=== PATIENT | male | born 1965 | race Native Hawaiian/Other Pacific Islander ===

== ENCOUNTER 2019-01-26 10:40 | Inpatient (IN) | payer OTHER ==
[2019-01-26] VITALS (9 sets, daily range): BP systolic 108–148; BP diastolic 62–77; TEMP 97.5–99.8; Ht 167.6 cm; Wt 72.4 kg
[~2019-01-26] VITALS: Ht 167.6 cm; Wt 72.4 kg
[2019-01-26] MEDS ORDERED: LEVO0.0529 PO (10:53)
[2019-01-26] MEDS ORDERED: CEPH500C20 PO (10:54)
[2019-01-26 12:07] LABS: POTASSIUM 3.2 mmol/L (3.6-5.2)
[2019-01-26 12:14] LABS: PLATELET COUNT 78 K/uL (142-355)
[2019-01-27] VITALS: BP 118/72; TEMP 98
[2019-01-27 04:00] VITALS: BP 136/71; TEMP 98.8
[2019-01-27 05:21] LABS: PLATELET COUNT 83 K/uL (142-355)
[2019-01-27 05:46] LABS: POTASSIUM 3.4 mmol/L (3.6-5.2)
[2019-01-27 20:00] VITALS: BP 143/58; TEMP 99.3
[2019-01-28] VITALS: BP 128/70; TEMP 100.2
[2019-01-28 04:00] VITALS: BP 133/70; TEMP 99.2
[2019-01-28 05:13] LABS: PLATELET COUNT 102 K/uL (142-355)
[2019-01-28 05:29] LABS: POTASSIUM 3.6 mmol/L (3.6-5.2)
[2019-01-28 08:00] VITALS: BP 124/70; TEMP 98.7
[2019-01-28 16:00] VITALS: BP 127/73; TEMP 99.9
[2019-01-28 20:00] VITALS: BP 136/74; TEMP 98.4
[2019-01-29] VITALS: BP 150/74; TEMP 100.7
[2019-01-29 04:27] LABS: PLATELET COUNT 121 K/uL (142-355)
[2019-01-29 04:38] LABS: POTASSIUM 3.6 mmol/L (3.6-5.2)
[2019-01-29 20:00] VITALS: BP 135/86; TEMP 98.8
[2019-01-29 20:16] LABS: POTASSIUM 3.9 mmol/L (3.6-5.2)
[2019-01-29 23:56] VITALS: BP 128/80; TEMP 99.2
[2019-01-30 04:00] VITALS: BP 146/79; TEMP 98.9
[2019-01-30 05:00] LABS: PLATELET COUNT 99 K/uL (142-355)
[2019-01-30 08:00] VITALS: BP 136/79; TEMP 98.6
== END 2019-01-30 14:45 | disposition short-term general hospital (02) | DRG 603 ==
LOC: ED 10:40 → MED/SURG 14:20
PROVIDERS: Family Medicine; Internal Medicine; ADMIT Family Medicine
DX: L03.116 Cellulitis of left lower limb (principal); N17.8 Other acute kidney failure; J90 Pleural effusion, not elsewhere classified; L03.115 Cellulitis of right lower limb; E87.6 Hypokalemia; E86.0 Dehydration; I10 Essential (primary) hypertension; K70.30 Alcoholic cirrhosis of liver without ascites; E03.8 Other specified hypothyroidism
CPT/HCPCS: 36415; 80048; 80053; 80307; 81000; 82150; 83605; 83690; 85007; 85027; 85379; 87040; 94664; 94760; 96365; 99284; J0690; J0696; J1650; J2543; J3370; J3490; Q9963

== ENCOUNTER 2019-01-30 15:00 | Outpatient (CLI) | payer OTHER ==
[~2019-01-30 15:00] MED LIST: CEPH500C20 PO; LEVO0.0529 PO
== END 2019-01-30 16:13 | disposition short-term general hospital (02) ==
LOC: AMB 15:00
DX: J90 Pleural effusion, not elsewhere classified (principal); L03.116 Cellulitis of left lower limb; R60.1 Generalized edema; R53.1 Weakness
CPT/HCPCS: A0425; A0429